=== PATIENT | female | born 1950 | race Caucasian/White ===

== ENCOUNTER 2017-07-04 11:28 | Emergency (ER) | payer MEDICARE, MEDICAID ==
[~2017-07-04] VITALS: Ht 154.9 cm; Wt 44.0 kg
[2017-07-04 11:29] VITALS: BP 129/74; PULSE 84; RESP 18; TEMP 98.2; O2SAT 95
[2017-07-04 12:14] VITALS: O2SAT 97
[2017-07-04] MEDS ORDERED: MULT1TAB46 (12:14)
[2017-07-04] MEDS ORDERED: TRAZ100T10 PO (12:14)
[2017-07-04] MEDS ORDERED: BUPR150XL PO (12:14)
[2017-07-04] MEDS ORDERED: CALC1TAB87 PO (12:14)
[2017-07-04] MEDS ORDERED: LEVO100T5 PO (12:14)
[2017-07-04] MEDS ORDERED: CITA40TA4 PO (12:14)
[2017-07-04] MEDS ORDERED: ASPI-516 CHEW (12:14)
[2017-07-04] MEDS ORDERED: LIDOCAINE VISCOUS 2% SOLN 15 ML UDC PO ONE (12:15)
[2017-07-04] MEDS ORDERED: ONDANSETRON HCL 4 MG/2 ML VIAL IVP ONE (12:15)
[2017-07-04] MEDS ORDERED: ALUMINUM/MAGNESIUM/SIMETH 30 ML CUP PO ONE (12:15)
[2017-07-04 12:26] LABS: BASOPHIL # 0.1 TH/MM3 (0-0.2); BASOPHIL % 1.2 % (0.0-2.0); EOSINOPHIL # 0.1 TH/MM3 (0-0.4); EOSINOPHIL % 1.8 % (0.0-4.0); HEMO FLAGS DIFF FINAL; LYMPH % 18.8 % (9.0-44.0); LYMPHOCYTE # 1.5 TH/MM3 (1.0-4.8); MEAN CELL VOLUME 97.7 FL (80.0-100.0); MEAN CORPUSCULAR HEMOGLOBIN 34.1 PG (27.0-34.0); MEAN CORPUSCULAR HGB CONC 34.9 % (32.0-36.0); MONO % 4.9 % (0.0-8.0); NEUT % 73.3 % (16.0-70.0); PLATELET COUNT 192 TH/MM3 (150-450); RED BLOOD COUNT 3.99 MIL/MM3 (4.00-5.30); RED CELL DISTRIBUTION WIDTH 13.7 % (11.6-17.2); WHITE BLOOD COUNT 8.1 TH/MM3 (4.0-11.0)
[2017-07-04 12:49] LABS: ALT (GPT) 16 U/L (10-53); ANION GAP 7 MEQ/L (5-15); AST (GOT) 20 U/L (15-37); BICARBONATE 28.2 MEQ/L (21.0-32.0); BLOOD UREA NITROGEN 11 MG/DL (7-18); CHLORIDE 102 MEQ/L (98-107); GLOMERULAR FILTRATION RATE 47 ML/MIN (>89); POTASSIUM 3.7 MEQ/L (3.5-5.1); SODIUM (NA) 137 MEQ/L (136-145)
[2017-07-04 12:51] LABS: ALKALINE PHOSPHATASE 73 U/L (45-117); TOTAL BILIRUBIN ADULT 0.4 MG/DL (0.2-1.0)
[2017-07-04 12:57] LABS: BACTERIA, URINE RARE /hpf; BLOOD, URINE NEG (NEG); COMMENT (UR) CULT NOT INDICATED; CULTURE IF INDICATED CULT NOT INDICATED; GLUCOSE,URINE NEG (NEG); KETONE, URINE NEG (NEG); NITRITE,URINE NEG (NEG); PH, URINE 6.5 (5.0-8.5); SQUAMOUS EPITHELIAL CELL URINE 2 /hpf (0-5); URINE COLOR LIGHT-YELLOW (YELLW/STRAW)
--- NOTE | 2017-07-04 13:00 | PD ---
HPI Chief Complaint: Abdominal Pain Time Seen by Provider: 11:42 Travel History International Travel<30 days: No Contact w/Intl Traveler<30days: No Traveled to known affect area: No History of Present Illness HPI the patient 67 years old and arrives with a complaint of abdominal pain for the past 2 days. The onset was gradual. Location the left upper quadrant. She's had diarrhea. She denies vomiting. No fever or nausea. The pain is worse with deep palpation. No similar episodes reported. No blood in stool. Appetite is decreased. Patient smokes cigarettes. Severity moderate. PFSH Past Medical History Depression: Yes COPD: Yes Neurologic: Yes (vertigo) Respiratory: Yes (COPD) Thyroid Disease: Yes Influenza Vaccination: No ?: Not Past Surgical History Hysterectomy: Yes Social History Alcohol Use: Yes (rarely) Tobacco Use: Yes (3 cigs/day) Substance Use: No Allergies-Medications (Allergen,Severity, Reaction): Coded Allergies: Penicillins (Verified Allergy, Severe, Anaphylaxis, 07/04/17) ketorolac (Verified Adverse Reaction, Unknown, Seizures, 07/04/17) Reported Meds & Prescriptions Reported Meds & Active Scripts Active Reported Levothyroxine (Levothyroxine Sodium) 100 Mcg Tab 100 Mcg PO DAILY Citalopram (Citalopram Hydrobromide) 40 Mg Tab 40 Mg PO DAILY Trazodone (Trazodone HCl) 100 Mg Tablet 100 Mg PO HS Wellbutrin Xl 24 HR (Bupropion HCl) 150 Mg Tab 150 Mg PO DAILY Calcium 600 with Vitamin D (Calcium Carbonate-Cholecalciferol) 600-400 mg-Unit Tab 1 Tab PO DAILY Multi Vitamin Daily (Multiple Vitamin) 1 Tab Tab Aspirin 81 Mg Chew 81 Mg CHEW DAILY Review of Systems Except as stated in HPI: all other systems reviewed are Neg General / Constitutional: No: Fever Physical Exam Narrative GENERAL: 67-year-old female SKIN: Warm and dry. HEAD: Atraumatic. Normocephalic. EYES: Pupils equal and round. No scleral icterus. No injection or drainage. ENT: No nasal bleeding or discharge. Mucous membranes pink and moist. NECK: Trachea midline. No JVD. CARDIOVASCULAR: Regular rate and rhythm. RESPIRATORY: No accessory muscle use. Clear to auscultation. Breath sounds equal bilaterally. GASTROINTESTINAL: Abdomen soft, non-tender, nondistended. Hepatic and splenic margins not palpable. MUSCULOSKELETAL: Extremities without clubbing, cyanosis, or edema. No obvious deformities. NEUROLOGICAL: Awake and alert. No obvious cranial nerve deficits. Motor grossly within normal limits. Five out of 5 muscle strength in the arms and legs. Normal speech. PSYCHIATRIC: Appropriate mood and affect; insight and judgment normal. Data Data Last Documented VS Vital Signs Date Time Temp Pulse Resp B/P (MAP) Pulse Ox O2 Delivery O2 Flow Rate FiO2 07/04/17 12:14 97 Room Air 07/04/17 11:29 98.2 84 18 Orders Orders Complete Blood Count With Diff (07/04/17 11:48) Comprehensive Metabolic Panel (07/04/17 11:48) Lipase (07/04/17 11:48) Lactic Acid (07/04/17 11:48) Urinalysis - C+S If Indicated (07/04/17 11:48) Ct Abd/Pel W Iv Contrast(Rout) (07/04/17 11:48) Iv Access Insert/Monitor (07/04/17 11:48) Ecg Monitoring (07/04/17 11:48) Oximetry (07/04/17 11:48) Ondansetron Inj (Zofran Inj) (07/04/17 12:15) Al-Mag Hy-Si 40-40-4 Mg/Ml Liq (Mag-Al P (07/04/17 12:15) Lidocaine 2% Viscous (Xylocaine 2% Visco (07/04/17 12:15) Iohexol 350 Inj (Omnipaque 350 Inj) (07/04/17 13:34) Labs Laboratory Tests Test 07/04/17 12:10 07/04/17 12:34 White Blood Count 8.1 TH/MM3 Red Blood Count 3.99 MIL/MM3 Hemoglobin 13.6 GM/DL Hematocrit 39.0 % Mean Corpuscular Volume 97.7 FL Mean Corpuscular Hemoglobin 34.1 PG Mean Corpuscular Hemoglobin Concent 34.9 % Red Cell Distribution Width 13.7 % Platelet Count 192 TH/MM3 Mean Platelet Volume 7.5 FL Neutrophils (%) (Auto) 73.3 % Lymphocytes (%) (Auto) 18.8 % Monocytes (%) (Auto) 4.9 % Eosinophils (%) (Auto) 1.8 % Basophils (%) (Auto) 1.2 % Neutrophils # (Auto) 6.0 TH/MM3 Lymphocytes # (Auto) 1.5 TH/MM3 Monocytes # (Auto) 0.4 TH/MM3 Eosinophils # (Auto) 0.1 TH/MM3 Basophils # (Auto) 0.1 TH/MM3 CBC Comment DIFF FINAL Differential Comment Blood Urea Nitrogen 11 MG/DL Creatinine 1.15 MG/DL Random Glucose 112 MG/DL Total Protein 7.3 GM/DL Albumin 4.0 GM/DL Calcium Level 9.2 MG/DL Alkaline Phosphatase 73 U/L Aspartate Amino Transf (AST/SGOT) 20 U/L Alanine Aminotransferase (ALT/SGPT) 16 U/L Total Bilirubin 0.4 MG/DL Sodium Level 137 MEQ/L Potassium Level 3.7 MEQ/L Chloride Level 102 MEQ/L Carbon Dioxide Level 28.2 MEQ/L Anion Gap 7 MEQ/L Estimat Glomerular Filtration Rate 47 ML/MIN Lactic Acid Level 2.0 mmol/L Lipase 192 U/L Urine Color LIGHT-YELLOW Urine Turbidity CLEAR Urine pH 6.5 Urine Specific [employer] 1.007 Urine Protein NEG mg/dL Urine Glucose (UA) NEG mg/dL Urine Ketones NEG mg/dL Urine Occult Blood NEG Urine Nitrite NEG Urine Bilirubin NEG Urine Urobilinogen LESS THAN 2.0 MG/DL Urine Leukocyte Esterase NEG Urine RBC 1 /hpf Urine WBC 1 /hpf Urine Squamous Epithelial Cells 2 /hpf Urine Bacteria RARE /hpf Microscopic Urinalysis Comment CULT NOT INDICATED MDM Medical Decision Making Medical Screen Exam Complete: Yes Emergency Medical Condition: Yes Medical Record Reviewed: Yes Differential Diagnosis Gastritis, pancreatitis, appendicitis, acute cholecystitis, ascending cholangitis, AAA, perforated viscous, mesenteric ischemia, hepatitis, cystitis, hydronephrosis/hydroureter/nephroureter calculus, mesenteric adenitis, biliary colic Narrative Course CBC & BMP Diagram 07/04/17 12:10 Total Protein 7.3, Albumin 4.0, Calcium Level 9.2, Alkaline Phosphatase 73, Aspartate Amino Transf (AST/SGOT) 20, Alanine Aminotransferase (ALT/SGPT) 16, Total Bilirubin 0.4 lactic acid 2.0 lipase 192 ua: no UTI Last Impressions Abdomen/Pelvis CT 07/04/17 1148 Signed Impressions: Service Date/Time: Tuesday, July 04, 2017 13:19 - CONCLUSION: 1. No acute abnormalities are demonstrated. 2. Benign appearing right renal cyst. 3. Thoracolumbar scoliosis and degenerative changes. Arsh James MD presentation concerning for PUD/gastritis follow up with GI gaviscon omeprazole Diagnosis Primary Impression: Abdominal pain Qualified Codes: R10.13 - Epigastric pain Additional Impression: Gastritis Qualified Codes: K29.70 - Gastritis, unspecified, without bleeding Med/Other Pt SpecificInfo: Prescription(s) given Scripts Omeprazole (Omeprazole) 20 Mg Tab 20 MG PO DAILY, #30 TAB 0 Refills Prov: Cristhian Mayberry MD 07/04/17 Aluminum Hydroxide-Mag Carb Liq (Gaviscon Liq) 95-358 Mg/15 Ml Susp 15-30 ML PO QID Y for HEARTBURN for 7 Days, ML 0 Refills Maximum 120 mL/24 hrs. Prov: Cristhian Mayberry MD 07/04/17 Disposition: 01 DISCHARGE HOME Condition: Stable Cristhian Mayberry MD Jul 04, 2017 13:00
[2017-07-04] MEDS ORDERED: IOHEXOL 350 MG/ML 10 ML VIAL (for RAD DIAG) IVCONTRAST ONE (13:34)
--- NOTE | 2017-07-04 13:41 | RADRPT ---
EXAM DATE/TIME: 07/04/2017 13:19 [facility] COMPARISON: No previous studies available for comparison. INDICATIONS : Left upper quadrant pain, diarrhea. IV CONTRAST: 80 cc Omnipaque 350 (iohexol) IV ORAL CONTRAST: No oral contrast ingested. RADIATION DOSE: 4.54 CTDIvol (mGy) MEDICAL HISTORY : Chronic obstructive pulmonary disease. SURGICAL HISTORY : Hysterectomy. ENCOUNTER: Initial ACUITY: 3 days PAIN SCALE: 7/10 LOCATION: Left upper quadrant TECHNIQUE: Volumetric scanning of the abdomen and pelvis was performed. Using automated exposure control and ad justment of the mA and/or kV according to patient size, radiation dose was kept as low as reasonably achievable to obtain optimal diagnostic quality images. DICOM format image data is available electro nically for review and comparison. FINDINGS: LOWER LUNGS: The visualized lower lungs are clear. LIVER: Homogeneous density without lesion. There is no dilation of the biliary tree. No calcified gallston es. SPLEEN: Normal size without lesion. PANCREAS: Within normal limits. KIDNEYS: Normal in size and shape. 4 cm simple appearing right mid zone cyst. There is no solid mass, stone o r hydronephrosis. ADRENAL GLANDS: Within normal limits. VASCULAR: There is no aortic aneurysm. BOWEL/MESENTERY: The stomach, small bowel, and colon demonstrate no acute abnormality. There is no free intraperitone al air or fluid. ABDOMINAL WALL: Within normal limits. RETROPERITONEUM: There is no lymphadenopathy. BLADDER: No wall thickening or mass. REPRODUCTIVE: Hysterectomy changes are noted and probable pelvic floor stabilization surgery. INGUINAL: There is no lymphadenopathy or hernia. MUSCULOSKELETAL: There is a moderate severity S-shaped thoracolumbar curvature. No acute bony abnormality demonstrated . CONCLUSION: 1. No acute abnormalities are demonstrated. 2. Benign appearing right renal cyst. 3. Thoracolumbar scoliosis and degenerative changes. Arsh James MD on July 04, 2017 at 13:36 Board Certified Radiologist. This report was verified electronically.
[2017-07-04] MEDS ORDERED: GAVISUS PO (13:59)
[2017-07-04] MEDS ORDERED: OMEP20TA93 PO (13:59)
== END 2017-07-04 14:43 | disposition home or self-care (01) ==
LOC: NEPC 11:28
DX: K29.70 Gastritis, unspecified, without bleeding (principal); N28.1 Cyst of kidney, acquired; M41.9 Scoliosis, unspecified; M51.35 Other intervertebral disc degeneration, thoracolumbar region; J44.9 Chronic obstructive pulmonary disease, unspecified; E07.9 Disorder of thyroid, unspecified; F32.9 Major depressive disorder, single episode, unspecified; F17.210 Nicotine dependence, cigarettes, uncomplicated; Z79.82 Long term (current) use of aspirin
CPT/HCPCS: 74177; 80053; 81001; 83605; 83690; 85025; 96374; 99285; J2405; Q9967

== ENCOUNTER 2017-09-21 20:41 | Emergency (ER) | payer MEDICARE, MEDICAID ==
[~2017-09-21 20:41] MED LIST: ASPI-516 CHEW; BUPR150XL PO; CALC1TAB87 PO; CITA40TA4 PO; GAVISUS PO; LEVO100T5 PO; MULT1TAB46; OMEP20TA93 PO; TRAZ100T10 PO
[2017-09-21 20:48] VITALS: BP 101/56; PULSE 71; RESP 16; TEMP 97.9; O2SAT 96
[2017-09-21] MEDS ORDERED: PAXI10TA8 PO (21:31)
[2017-09-21] MEDS ORDERED: ONDANSETRON HCL 4 MG/2 ML VIAL IV PUSH ONE (21:45)
[2017-09-21 21:50] LABS: AUTOMATED NEUTROPHIL # 4.7 TH/MM3 (1.8-7.7); BASOPHIL # 0.1 TH/MM3 (0-0.2); BASOPHIL % 1.3 % (0.0-2.0); EOSINOPHIL # 0.2 TH/MM3 (0-0.4); EOSINOPHIL % 2.3 % (0.0-4.0); HEMOGLOBIN 13.3 GM/DL (11.6-15.3); LYMPH % 28.5 % (9.0-44.0); LYMPHOCYTE # 2.3 TH/MM3 (1.0-4.8); MEAN CORPUSCULAR HEMOGLOBIN 33.9 PG (27.0-34.0); MEAN CORPUSCULAR HGB CONC 34.9 % (32.0-36.0); MEAN PLATELET VOLUME 7.5 FL (7.0-11.0); MONO % 8.5 % (0.0-8.0); MONOCYTE # 0.7 TH/MM3 (0-0.9); NEUT % 59.4 % (16.0-70.0); PLATELET COUNT 195 TH/MM3 (150-450); RED BLOOD COUNT 3.92 MIL/MM3 (4.00-5.30); RED CELL DISTRIBUTION WIDTH 12.6 % (11.6-17.2)
--- NOTE | 2017-09-21 21:50 | RADRPT ---
EXAM DATE/TIME: 09/21/2017 21:16 [facility] COMPARISON: No previous studies available for comparison. INDICATIONS : Fever and cough. MEDICAL HISTORY : Chronic obstructive pulmonary disease. SURGICAL HISTORY : None. ENCOUNTER: Initial ACUITY: 1 day PAIN SCORE: 0/10 LOCATION: Bilateral chest FINDINGS: The cardiac silhouette is normal in transverse diameter. The lungs are free of acute parenchymal opac ity. No effusions are identified. Severe scoliotic deformity is present to the right with a rotatory component. [place] is at T6. CONCLUSION: 1. No acute cardiopulmonary disease. Charlie Arauz MD on September 21, 2017 at 21:48 Board Certified Radiologist. This report was verified electronically.
[2017-09-21 22:04] LABS: ALBUMIN 3.8 GM/DL (3.4-5.0); AST (GOT) 14 U/L (15-37); BICARBONATE 31.4 MEQ/L (21.0-32.0); BLOOD UREA NITROGEN 13 MG/DL (7-18); CALCIUM 9.6 MG/DL (8.5-10.1); CHLORIDE 100 MEQ/L (98-107); GLOMERULAR FILTRATION RATE 55 ML/MIN (>89); GLUCOSE,RANDOM 85 MG/DL (74-106); SODIUM (NA) 136 MEQ/L (136-145)
[2017-09-21 22:05] LABS: ALT (GPT) 10 U/L (10-53)
[2017-09-21 22:08] LABS: ALKALINE PHOSPHATASE 60 U/L (45-117); TOTAL BILIRUBIN ADULT 0.3 MG/DL (0.2-1.0); TOTAL PROTEIN 6.7 GM/DL (6.4-8.2)
--- NOTE | 2017-09-21 22:08 | PD ---
HPI Chief Complaint: GI Complaint Time Seen by Provider: 21:21 Travel History International Travel<30 days: No Contact w/Intl Traveler<30days: No Traveled to known affect area: No History of Present Illness HPI 67-year-old female with a history of COPD and gastric reflux return presents to the emergency department complaining of fever, nausea, and diarrhea for approximate 3 weeks. States the diarrhea has been black in color. Says that she has had a subjective fever with temperatures approximately 98. In addition , patient states that she has left lower quadrant pain that radiates across the lower abdomen. Patient describes his pain as sharp last several seconds and goes away on its own. States the pain is mild to moderate when this occurs. Patient denies bright red bleeding per rectum. Denies bloody or coffee-ground emesis. She denies unusual shortness of breath or chest pain. States she was due for an endoscopy and colonoscopy in July however, she canceled this. Her last colonoscopy was 20 years ago. Denies history of diverticulitis. Patient does not take blood thinners. She takes baby aspirin daily. PFSH Past Medical History Depression: Yes COPD: Yes Neurologic: Yes (vertigo) Respiratory: Yes (COPD) Thyroid Disease: Yes Past Surgical History Hysterectomy: Yes Social History Alcohol Use: Yes (rarely) Tobacco Use: Yes (3 cigs/day) Substance Use: No Allergies-Medications (Allergen,Severity, Reaction): Coded Allergies: Penicillins (Verified Allergy, Severe, Anaphylaxis, 09/21/17) ketorolac (Verified Adverse Reaction, Unknown, Seizures, 09/21/17) Reported Meds & Prescriptions Reported Meds & Active Scripts Active Omeprazole 20 Mg Tab 20 Mg PO DAILY Reported Paxil (Paroxetine HCl) 10 Mg Tab 10 Mg PO DAILY Levothyroxine (Levothyroxine Sodium) 100 Mcg Tab 100 Mcg PO DAILY Citalopram (Citalopram Hydrobromide) 40 Mg Tab 40 Mg PO DAILY Trazodone (Trazodone HCl) 100 Mg Tablet 100 Mg PO HS Calcium 600 with Vitamin D (Calcium Carbonate-Cholecalciferol) 600-400 mg-Unit Tab 1 Tab PO DAILY Aspirin 81 Mg Chew 81 Mg CHEW DAILY Review of Systems Except as stated in HPI: all other systems reviewed are Neg Physical Exam Narrative GENERAL: WD, WN SKIN: Focused skin assessment warm/dry. HEAD: Atraumatic. Normocephalic. EYES: Pupils equal and round. No scleral icterus. No injection or drainage. ENT: No nasal bleeding or discharge. Mucous membranes pink and moist. NECK: Trachea midline. No JVD. No lymphadenopathy CARDIOVASCULAR: Regular rate and rhythm. No murmur appreciated. RESPIRATORY: No accessory muscle use. Clear to auscultation. Breath sounds equal bilaterally. GASTROINTESTINAL: Abdomen soft, left lower quadrant pain without rebound tenderness. Nondistended, normoactive bowel sounds. No masses or organomegaly MUSCULOSKELETAL: No obvious deformities. No clubbing. No cyanosis. No edema. NEUROLOGICAL: Awake and alert. No obvious cranial nerve deficits. Motor grossly within normal limits. Normal speech. PSYCHIATRIC: Appropriate mood and affect; insight and judgment normal. Data Data Last Documented VS Vital Signs Date Time Temp Pulse Resp B/P (MAP) Pulse Ox O2 Delivery O2 Flow Rate FiO2 09/21/17 23:18 69 20 127/74 (91) 96 09/21/17 20:48 97.9 Orders Orders Complete Blood Count With Diff (09/21/17 20:51) Comprehensive Metabolic Panel (09/21/17 20:51) Influenzae A/B Antigen (09/21/17 20:51) Electrocardiogram (09/21/17 20:51) Chest, Pa & Lat (09/21/17 20:51) Lipase (09/21/17 20:52) Ct Abd/Pel W Iv Contrast(Rout) (09/21/17 ) Ondansetron Inj (Zofran Inj) (09/21/17 21:45) Iohexol 350 Inj (Omnipaque 350 Inj) (09/21/17 22:32) Ed Discharge Order (09/21/17 22:59) Labs Laboratory Tests Test 09/21/17 21:30 White Blood Count 8.0 TH/MM3 Red Blood Count 3.92 MIL/MM3 Hemoglobin 13.3 GM/DL Hematocrit 38.0 % Mean Corpuscular Volume 97.0 FL Mean Corpuscular Hemoglobin 33.9 PG Mean Corpuscular Hemoglobin Concent 34.9 % Red Cell Distribution Width 12.6 % Platelet Count 195 TH/MM3 Mean Platelet Volume 7.5 FL Neutrophils (%) (Auto) 59.4 % Lymphocytes (%) (Auto) 28.5 % Monocytes (%) (Auto) 8.5 % Eosinophils (%) (Auto) 2.3 % Basophils (%) (Auto) 1.3 % Neutrophils # (Auto) 4.7 TH/MM3 Lymphocytes # (Auto) 2.3 TH/MM3 Monocytes # (Auto) 0.7 TH/MM3 Eosinophils # (Auto) 0.2 TH/MM3 Basophils # (Auto) 0.1 TH/MM3 CBC Comment DIFF FINAL Differential Comment Blood Urea Nitrogen 13 MG/DL Creatinine 1.00 MG/DL Random Glucose 85 MG/DL Total Protein 6.7 GM/DL Albumin 3.8 GM/DL Calcium Level 9.6 MG/DL Alkaline Phosphatase 60 U/L Aspartate Amino Transf (AST/SGOT) 14 U/L Alanine Aminotransferase (ALT/SGPT) 10 U/L Total Bilirubin 0.3 MG/DL Sodium Level 136 MEQ/L Potassium Level 3.8 MEQ/L Chloride Level 100 MEQ/L Carbon Dioxide Level 31.4 MEQ/L Anion Gap 5 MEQ/L Estimat Glomerular Filtration Rate 55 ML/MIN Lipase 124 U/L MDM Medical Decision Making Medical Screen Exam Complete: Yes Emergency Medical Condition: Yes Differential Diagnosis Diverticulitis, appendicitis, gastritis Narrative Course 67-year-old female with history of COPD and GERD presents emergency department complaining of left lower quadrant and abdominal pain for approximately 3 weeks. Patient states in addition she has had associated with black diarrhea and had one episode of vomiting today. She was due for an endoscopy and colonoscopy in July however, she was unable to make this appointment. Labs and imaging studies ordered. Zofran ordered as patient states she felt mildly nauseous. CBC & BMP Diagram 09/21/17 21:30 Total Protein 6.7, Albumin 3.8, Calcium Level 9.6, Alkaline Phosphatase 60, Aspartate Amino Transf (AST/SGOT) 14 L, Alanine Aminotransferase (ALT/SGPT) 10, Total Bilirubin 0.3 Lipase 124 Flu negative. Chest x-ray demonstrates no acute cardiopulmonary disease. CT abdomen pelvis demonstrates no evidence of acute abdominal or pelvic process. No masses are identified. Constipation present. After discussion of labs and imaging studies, patient states that she has been using Imodium to control her diarrhea which is a likely culprit for the constipation. Upon reassessment, patient resting comfortably in bed and has no complaints. 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 Patient states understanding and will comply. Patient) ambulated out of the emergency department without issue. Patient be discharged to follow advised follow-up with primary care physician. Advised to follow with hauling contractor as previously discussed. [facility] Point of Care Internal Pos. & Neg. Controls: Passed Fecal Specimen Occult Blood: Negative (Black stool) Diagnosis Primary Impression: Melena Additional Impression: Abdominal pain Qualified Codes: R10.32 - Left lower quadrant pain Referrals: Benefits Clerk Primary Care Physician Additional Instructions: Follow-up with your primary care physician. Recommend following up with the gastrointestinal doctor as originally scheduled in July. Continue medications as previously prescribed. Disposition: DISCHARGE HOME Condition: Stable Smita Wiggins Sep 21, 2017 22:08
[2017-09-21] MEDS ORDERED: IOHEXOL 350 MG/ML 10 ML VIAL (for RAD DIAG) IVCONTRAST ONE (22:32)
--- NOTE | 2017-09-21 22:42 | RADRPT ---
EXAM DATE/TIME: 09/21/2017 22:18 [facility] COMPARISON: CT ABDOMEN & PELVIS W CONTRAST, July 04, 2017, 13:19. INDICATIONS : Left lower quadrant pain and vomiting. IV CONTRAST: 80 cc Omnipaque 350 (iohexol) IV ORAL CONTRAST: No oral contrast ingested. RADIATION DOSE: 6.64 CTDIvol (mGy) MEDICAL HISTORY : Chronic obstructive pulmonary disease. SURGICAL HISTORY : Hysterectomy. ENCOUNTER: Initial ACUITY: 1 week PAIN SCALE: 7/10 LOCATION: Left lower quadrant TECHNIQUE: Volumetric scanning of the abdomen and pelvis was performed. Using automated exposure control and ad justment of the mA and/or kV according to patient size, radiation dose was kept as low as reasonably achievable to obtain optimal diagnostic quality images. DICOM format image data is available electro nically for review and comparison. FINDINGS: Examination of the lung bases demonstrates no abnormality. No pleural fluid is identified. No pulmona ry nodules are present. There is hypodensity within the liver compatible with cyst measuring 10 mm in segment 7The spleen is normal in size and free of focal defects. The gallbladder and pancreas are un remarkable. No intrahepatic or extrahepatic ductal dilatation is seen. The adrenal glands are unremar kable. The left kidney is unremarkable. There is a single simple cyst in the right kidney measuring 4 cm in the midpole. Moderate scoliotic deformity is present to the left with a rotatory component wit h the apex at L1. There is a small amount of free fluid within the pelvis. There is a large amount of fecal material th roughout the colon consistent with constipation. CONCLUSION: 1. No evidence of acute abdominal or pelvic process. No masses are identified. 2. Constipation Charlie Arauz MD on September 21, 2017 at 22:37 Board Certified Radiologist. This report was verified electronically.
[2017-09-21 23:18] VITALS: BP 127/74
--- NOTE | 2017-09-22 11:25 | EKG ---
Date Performed: 09/21/2017 Time Performed: 21:02:05 PTAGE: 67 years EKG: SINUS BRADYCARDIA POSSIBLE RIGHT VENTRICULAR CONDUCTION DELAY BORDERLINE ECG NO PREVIOUS TRACING DOCTOR: Charlie Ramey Interpretating Date/Time 09/22/2017 11:23:34
== END 2017-09-21 23:20 | disposition home or self-care (01) ==
LOC: NEPC 20:41
DX: K92.1 Melena (principal); R10.32 Left lower quadrant pain; R00.1 Bradycardia, unspecified; F32.9 Major depressive disorder, single episode, unspecified; J44.9 Chronic obstructive pulmonary disease, unspecified; F17.210 Nicotine dependence, cigarettes, uncomplicated; Z88.0 Allergy status to penicillin; Z88.8 Allergy status to other drugs, medicaments and biological substances
CPT/HCPCS: 71046; 74177; 80053; 83690; 85025; 87804; 93005; 96374; 99285; J2405; Q9967